=== PATIENT | female | born 1990 | race Caucasian/White ===

== ENCOUNTER 2017-01-19 13:49 | Emergency (ER) | payer OTHER ==
[~2017-01-19] VITALS: Ht 160 cm; Wt 83.3 kg
[2017-01-19] MEDS ORDERED: SODIUM CHLORIDE 0.9% 1,000ML IVBOLUS ONE (15:00)
[2017-01-19] MEDS ORDERED: SODIUM CHLORIDE FLUSH 10ML SYR IVF ONE (15:00)
[2017-01-19 15:03] LABS: BLOOD UREA NITROGEN 11 mg/dL (7-18)
[2017-01-19 15:06] LABS: ASPARTATE AMINO TRANSFERASE 6 U/L (15-37)
[2017-01-19 15:32] LABS: HCG UR OBC PASS
[2017-01-19] MEDS ORDERED: ONDANSETRON 2MG/ML, 2ML IVPush ONE (16:00)
[2017-01-19] MEDS ORDERED: ONDANSETRON 2MG/ML, 2ML ONE (16:45)
[2017-01-19 16:48] VITALS: BP 120/71
== END 2017-01-19 16:52 | disposition home or self-care (01) ==
LOC: ED 16:00
DX: O21.9 Vomiting of pregnancy, unspecified (principal); O99.330 Smoking (tobacco) complicating pregnancy, unspecified trimester; Z3A.00 Weeks of gestation of pregnancy not specified
CPT/HCPCS: 36415; 80053; 81003; 81025; 85025; 93005; 96361; 96374; 99285; J2405; J7030

== ENCOUNTER 2017-02-16 19:27 | Emergency (ER) | payer OTHER ==
[~2017-02-16] VITALS: Ht 160 cm; Wt 83.0 kg
[2017-02-16 19:30] VITALS: BP 133/85
[2017-02-16] MEDS ORDERED: ACETAMINOPHEN 500 MG TABLET ONE (19:51)
[2017-02-16] MEDS ORDERED: ACETAMINOPHEN 500 MG TABLET PO ONE (20:00)
== END 2017-02-16 21:44 | disposition home or self-care (01) ==
LOC: ED 19:53
DX: O26.891 Other specified pregnancy related conditions, first trimester (principal); Z3A.11 11 weeks gestation of pregnancy; W10.9XXA Fall (on) (from) unspecified stairs and steps, initial encounter; S93.524A Sprain of metatarsophalangeal joint of right lesser toe(s), initial encounter; Y93.89 Activity, other specified; Y99.8 Other external cause status; Y92.099 Unspecified place in other non-institutional residence as the place of occurrence of the external cause
CPT/HCPCS: 76801; 81003; 99285

== ENCOUNTER 2017-05-31 10:18 | Emergency (ER) | payer OTHER ==
[~2017-05-31] VITALS: Ht 157.5 cm; Wt 92.0 kg
[2017-05-31 10:22] VITALS: BP 120/62
== END 2017-05-31 11:01 | disposition home or self-care (01) ==
LOC: ED 10:55
DX: R10.9 Unspecified abdominal pain (principal); Z53.21 Procedure and treatment not carried out due to patient leaving prior to being seen by health care provider

== ENCOUNTER 2018-05-23 19:29 | Emergency (ER) | payer MEDICAID, OTHER ==
[~2018-05-23] VITALS: Ht 160 cm; Wt 104.1 kg
[2018-05-23 20:08] LABS: BASOPHILS % (AUTO) 1 % (0-1); EOSINOPHILS % (AUTO) 2 % (1-7); LYMPHOCYTES # (AUTO) 2.56 x10^3/uL (1-3.4); LYMPHOCYTES % (AUTO) 20 % (22-44); MD NO; MEAN CORPUSCULAR HGB CONC 33.8 g/dL (32.4-35.8); MEAN CORPUSCULAR VOLUME 88.8 fL (80-100); MEAN PLATELET VOLUME 8.7 fL (7.4-10.4); MONOCYTES # (AUTO) 0.96 x10^3/uL (0.2-0.8); MONOCYTES % (AUTO) 7 % (2-9); NEUTROPHILS # (AUTO) 9.08 x10^3/uL (1.8-6.8); NEUTROPHILS % (AUTO) 70 % (42-75); PLATELET COUNT 271 x10^3/uL (130-400); RED BLOOD COUNT 4.76 x10^6/uL (3.82-5.3); RED CELL DISTRIBUTION WIDTH 14.6 % (9.6-15.2)
[2018-05-23 20:12] LABS: INTERNATIONAL NORMALIZED RATIO 0.97 (0.93-1.1); PROTHROMBIN TIME 10.3 Seconds (9.6-11.5)
[2018-05-23 20:13] LABS: ALBUMIN 3.5 g/dL (3.4-5.0); ANION GAP 7 mmol/L (5-15); CALCIUM 8.4 mg/dL (8.5-10.1); CHLORIDE 110 mmol/L (98-107); CREATININE 0.79 mg/dL (0.55-1.02)
[2018-05-23] MEDS ORDERED: KETOROLAC 30 MG/1 ML IM ONE (21:00)
[2018-05-23] MEDS ORDERED: KETOROLAC 30 MG/1 ML ONE (21:04)
[2018-05-23 21:41] VITALS: BP 116/89
== END 2018-05-23 21:43 | disposition home or self-care (01) ==
LOC: ED 21:06
DX: N93.8 Other specified abnormal uterine and vaginal bleeding (principal); R10.2 Pelvic and perineal pain; F17.200 Nicotine dependence, unspecified, uncomplicated
CPT/HCPCS: 36415; 76830; 80048; 82040; 84703; 85025; 85610; 85730; 99284